=== PATIENT | male | born 1960 | race Caucasian/White ===

== ENCOUNTER 2025-06-17 10:51 | Outpatient (REF) | payer MEDICAID, SELFPAY ==
[2025-06-17 18:04] LABS: MANUAL DIFF FLAG NO
[2025-06-17 18:14] LABS: Hematocrit 45.7 % (42.0-52.0); Hemoglobin 14.8 g/dl (14.0-18.0); Imm Gran Abs Auto 0.03 X10*3/uL (0.00-0.03); Imm Gran Pct Auto 0.4 % (0.0-0.4); Lymphocytes Absolute Auto 2.6 X10*3/uL (1.2-4.9); Mean Corpuscular HGB Conc 32.4 g/dl (31.0-36.0); Mean Corpuscular Hemoglobin 27.0 pg (27.0-33.0); Mean Corpuscular Volume 83.2 fL (80.0-98.0); NRBC Abs Auto 0.000 X10*3/uL (0.0-0.012); NRBC Pct Auto 0.0 /100WBC (0.0-0.2); Platelet Count 128 X10*3/uL (160-400); Red Blood Count 5.49 X10*6/uL (4.60-5.80); White Blood Count 7.6 X10*3/uL (4.8-10.8)
[2025-06-17 18:18] LABS: Total Hemoglobin (HGBA1C) 3684.3639 umol/L
[2025-06-17 18:35] LABS: Appearance Urine Turbid; Glucose Urine UA Negative (Negative); PH 5.0 (5.0-9.0); Specific Gravity - Urine 1.025 (1.005-1.025); UMIC TRIGGER UACC YES
[2025-06-17 18:37] LABS: Alanine Aminotransferase 31 U/L (0-40); Albumin Level 4.6 g/dL (3.5-5.0); Alkaline Phosphatase 153 U/L (39-117); Anion Gap 12 (12-20); Aspartate Amino Transferase 27 U/L (5-37); Blood Urea Nitrogen 20 mg/dL (9-16); Calcium 9.1 mg/dL (8.4-10.2); Carbon Dioxide 27 mmol/L (22-29); Chloride 108 mmol/L (96-108); Cholesterol 179 mg/dL (<200); Estimated Glomerular Filt Rate > 60; HDL Cholesterol 48 mg/dL (>40); Magnesium 2.3 mg/dL (1.6-2.6); Potassium 4.3 mmol/L (3.3-5.1); Sodium 143 mmol/L (135-145); Total Protein 7.4 g/dL (6.5-8.0); Triglycerides 120 mg/dL (<150)
[2025-06-17 18:53] LABS: UACC Culture Trigger YES
[2025-06-17 18:59] LABS: Folate 9.8 ng/mL (> or = 4.0); Vitamin B12 530 pg/mL (200-900)
[2025-06-18 05:42] LABS: HBS Num1 > 1000.00 mIU/mL (0-7.99); HBsAGNum1 0.27 S/CO (0.00-0.99); HIV Num 1 0.05 S/CO (0.00-0.99); Hepatitis B Surface Antigen Negative (Negative); ~HepC Num1 0.09 S/CO (0.00-0.79); ~Hepatitis B Surface Antibody REACTIVE (Nonreactive); ~Hepatitis C Antibody Nonreactive (Nonreactive)
[2025-06-21 14:24] LABS: VITAMIN D (1,25 OH) D3 41 pg/mL; Vit D (1,25-Dihydroxy) Total 41 pg/mL (18-72); Vitamin D (1,25 OH) D2 <8 pg/mL
== END 2025-06-17 10:52 | disposition home or self-care (01) ==
LOC: HO.HKASLDS 10:51
PROVIDERS: PCP Student in an Organized Health Care Education/Training Program; Visit Provider Student in an Organized Health Care Education/Training Program
DX: Z76.89 Persons encountering health services in other specified circumstances (principal); Z13.9 Encounter for screening, unspecified; Z71.9 Counseling, unspecified; Z12.11 Encounter for screening for malignant neoplasm of colon; Z12.12 Encounter for screening for malignant neoplasm of rectum; Z13.31 Encounter for screening for depression; Z11.4 Encounter for screening for human immunodeficiency virus [HIV]; E11.9 Type 2 diabetes mellitus without complications; E78.2 Mixed hyperlipidemia; M25.561 Pain in right knee; M25.562 Pain in left knee; G89.29 Other chronic pain; R01.1 Cardiac murmur, unspecified
CPT/HCPCS: 36415; 80053; 80061; 81001; 82607; 82652; 82746; 83036; 83735; 85025; 86706; 86803; 87086; 87340; 87389; 99202

== ENCOUNTER 2025-06-17 10:51 | Outpatient (AMB) | payer MEDICAID, SELFPAY ==
--- NOTE | 2025-06-17 10:56 | A.OFFPC_ITS ---
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 Accompanied by: Self / Same As Patient Allergies No Known Allergies Allergy (Verified 06/17/25 10:57) Tobacco use date assessed: 06/17/25 Fall risk assessment: No Falls in past year Last assessed Fall Risk: 06/17/25 Dental Screening Dental Screen Date: 06/17/25 Did you have a dental visit in the last 12 months?: Yes Did you have a dental problem in the last 6 months where you did not have access to dental care?: No Was dental information given to patient?: Patient has dentist HPI HPI Comments History of Present Illness Details History of Present Illness The patient is a 64-year-old male presenting with the need to establish care with a primary care physician and address ongoing health concerns including diabetes, hyperlipidemia, and knee pain. Diabetes mellitus: - The patient has a history of diabetes mellitus and is currently taking metformin for management. Hyperlipidemia: - The patient has hyperlipidemia and is taking atorvastatin as part of his treat ment regimen. Bilateral knee pain: - The patient reports bilateral knee qi n, particularly when ascending stairs, which is suspected to be due to age-related arthritic changes. Heart murmur: - A heart murmur was detected during the physical examination, prompting further investigation with an electrocardiogram and echocardiogram. History of wrist fracture: - The patient sustained a wrist fracture approximately six to seven months ago, which required surgical intervention with titanium placement. Review of Systems - Musculoskeletal: Reports bilateral kne e pain when ascending stairs. - Cardiovascular: Denies chest pain, ort hopnea, or syncope. - Gastrointestinal: Denies changes in william wel habits. 10-point ROS reviewed and negative excep t as noted in HPI Past Medical History - Diabetes mellitus, managed with metfor min - Hyperlipidemia, managed with atorvasta tin - History of wrist fracture with surgica l intervention Health Maintenance - Colon cancer screening discussed with options for stool test or colonoscopy. Physical Exam General: Well-appearing, in no acute distress. Vital signs: Blood pressure is 139/81. HEENT: Normocephalic, atraumatic. PERRLA, EOMI. Conjunctiva clear, sclera anicteric. Oropharynx clear, mucous membranes moist. TMs intact bilaterally. Neck: Supple, no lymphadenopathy, no thyromegaly, no JVD or carotid bruits. Cardiovascular: Heart murmur noted. RRR, normal S1/S2, no rubs, or gallops. Peripheral pulses 2+ and symmetric. No edema. Respiratory: Lungs clear to auscultation bilaterally, no wheezes, rales, or rhonchi. Normal effort. Abdomen: Soft, non-tender, non-distended. Normoactive bowel sounds. No hepatosplenomegaly, no masses. MSK: Full range of motion, no joint swelling or deformity. Bilateral knee pain noted, especially when going up the stairs. Normal gait. Skin: Warm, dry, intact. No rashes, lesions, or pallor. Neuro: Alert and oriented x3. Cranial nerves II-XII intact. Strength 5/5 throughout. Sensation intact. Reflexes 2+ symmetric. Normal coordination and gait. Psych: Appropriate mood and affect. Normal judgment and insight. Plan 1. Type 2 diabetes mellitus without comp lications E11.9 HCC 19 - Continue metformin and monitor blood g lucose levels regularly. 2. Hyperlipidemia, unspecified E78 .5 - Continue atorvastatin and monitor lipi d profile. 3. Pain in right knee M25.561 - Recommend physical therapy for strengt hening and pain management. 4. Cardiac murmur, unspecified R01 .1 - Order electrocardiogram and echocardio gram to assess heart function. - Refer to cardiology for further evalua tion. 5. Preventative Care: Colon Cancer Scree tanmay - Discussed options for colon cancer scr eening including stool test and colonoscopy. Discussion Notes During the visit, I discussed the patient's diabetes management with metformin and the importance of regular blood glucose monitoring. We also reviewed his hyperlipidemia treatment with atorvastatin and the need for periodic lipid profile checks. For his bilateral knee pain, I recommended physical therapy to improve muscle strength and reduce pain. I explained the detection of a heart murmur and the necessity for further evaluation with an electrocardiogram and echocardiogram, along with a referral to cardiology. Additionally, we discussed colon cancer screening options, including a stool test and colonoscopy, to ensure comprehensive preventative care. Patient was informed and verbally consented to the use of an ambient scribe for clinic note documentation during this visit. Patient Instructions - Continue taking metformin and atorvast atin as prescribed. - Attend physical therapy sessions for k nee pain management. - Follow up with cardiology for heart mu rmur evaluation. - Complete colon cancer screening as dis cussed. [facility] Medical History (Updated 06/17/25 @ 11:47 by Abdulaziz Alicia MD) Systolic murmur Arthritis Bilateral knee pain Family History (Updated 06/17/25 @ 11:07 by Edgar Heck MA) Father High blood pressure Dementia Mother Mitral valve disease Heart problem Social History Housing: House Alcohol intake: current Alcohol intake frequency: does not drink Patient Tobacco Use Status: Never used Tobacco service: No Current occupational status: unemployed Cognitive needs: No Hearing needs: No Vision needs: Yes (rx glasses) Questionnaire PHQ-9 Over the last 2 weeks, how often have you been bothered by any of the following problems? 1. Little interest or pleasure in doing things: not at all 2. Feeling down, depressed, or hopeless: not at all 3. Trouble falling or staying asleep, or sleeping too much: not at all 4. Feeling tired or having little energy: not at all 5. Poor appetite or overeating: not at all 6. Feeling bad about yourself - or that you are a failure or have let yourself or your family down: not at all 7. Trouble concentrating on things, such as reading the newspaper or watching television: not at all 8. Moving or speaking so slowly that other people could have noticed. Or the opposite - being so fidgety or restless that you have been moving around a lot more than usual: not at all 9. Thoughts that you would be better off or of hurting yourself in some way: not at all Total score: 0 Source: Developed by Drs. Dakotah Novak, Zoie Pearl, Live Rojas and colleagues, with an educational ziyad from [employer]. Thrive Questionnaire Date Thrive assessed: 06/16/25 I am a: Patient What is your living situation today?: I have a steady place to live Within the past 12 months, did the food you bought not last and you didn't have the money to get more?: Never true Within the past 12 months, did you worry whether your food would run out before you got money to buy more?: Never true Do you have trouble paying for medicines?: No Do you have trouble getting transportation to medical appointments?: No Do you have trouble paying your heating and electricity bill?: No Do you have trouble taking care of your child, family member or friend?: No Do you have trouble with day-to-day activities such as bathing, preparing meals, shopping, managing finances, etc.?: No Are you currently unemployed and looking for a job?: Yes Are you interested in more education?: No Please select the resources that you would like help with: Transportation and Daily support Currently or been in a relationship where the following occur: No concerns reported THRIVE Score: 0 AUDIT C Alcohol Use Questionnaire (AUDIT-C) 1. How often do you have a drink containing alcohol?: Never 3. How often do you have six or more drinks on one occasion?: Never Total Score: 0 MARY-7 AMB Questionnaire MARY-7 Feeling nervous, anxious, or on edge: 0 = Not at all Not being able to stop or control worryin = Not at all Worrying too much about different things: 0 = Not at all Trouble relaxin = Not at all Being so restless that it is hard to sit still: 0 = Not at all Becoming easily annoyed or irritable: 0 = Not at all Feeling afraid as if something awful might happen: 0 = Not at all Total MARY-7 score (0-4 normal; 5-9 mild; 10-14 moderate; 15-21 severe): 0 Source: Developed by Drs. Dakotah Novak, Zoie Pearl, Live Rojas and colleagues, with an educational ziyad from [employer]. Physical exam (Primary Care) Thrive Assessment: Date of Thrive Assessment Date Thrive assessed 06/16/25 06/16/25 16:42 Currently or been in a relationship where the following occur: No concerns reported Coding Level of Care Code New Pt Level 3 (74068) Diagnoses Encounter to establish care Z76.89 Encounter for screening, unspecified Z13.9 Counseling, unspecified Z71.9 Type 2 diabetes mellitus without complication, without long-term current use of insulin E11.9 Diabetes mellitus rn long term care insulin use: without rn long term care use Diabetes mellitus complication status: without complication Mixed hyperlipidemia E78.2 Hyperlipidemia type: mixed hyperlipidemia Chronic pain of both knees M25.561; M25.562; G89.29 Chronicity: chronic Systolic murmur R01.1 Cardiac murmur R01.1 Encounter for colorectal cancer screening Z12.11; Z12.12 Screening for depression Z13.31 Screening for HIV (human immunodeficiency virus) Z11.4 Assessment & Plan Assessment & Plan (1) Encounter to establish care: Code(s): Z76.89 - Persons encountering health services in other specified circumstances (2) Encounter for screening, unspecified: Code(s): Z13.9 - Encounter for screening, unspecified (3) Counseling, unspecified: Code(s): Z71.9 - Counseling, unspecified (4) Diabetes type 2: Code(s): E11.9 - Type 2 diabetes mellitus without complications Qualifiers: Diabetes mellitus fdc insulin use: without rn long term care use Diabetes mellitus complication status: without complication Qualified Code(s): E11.9 - Type 2 diabetes mellitus without complications (5) Hyperlipidemia: Code(s): E78.5 - Hyperlipidemia, unspecified Qualifiers: Hyperlipidemia type: mixed hyperlipidemia Qualified Code(s): E78.2 - Mixed hyperlipidemia (6) Bilateral knee pain: Code(s): M25.561 - Pain in right knee; M25.562 - Pain in left knee Category: Medical Qualifiers: Chronicity: chronic Qualified Code(s): M25.561 - Pain in right knee; M25.562 - Pain in left knee; G89.29 - Other chronic pain (7) Systolic murmur: Code(s): R01.1 - Cardiac murmur, unspecified Category: Medical (8) Cardiac murmur: Code(s): R01.1 - Cardiac murmur, unspecified (9) Encounter for colorectal cancer screening: Code(s): Z12.11 - Encounter for screening for malignant neoplasm of colon; Z12.12 - Encounter for screening for malignant neoplasm of rectum (10) Screening for depression: Code(s): Z13.31 - Encounter for screening for depression (11) Screening for HIV (human immunodeficiency virus): Code(s): Z11.4 - Encounter for screening for human immunodeficiency virus [HIV] Plan Orders: Orders Comprehensive Met. Panel Today Z13.9 - Encounter for screening, unspecified, Z76.89 - Persons encountering health services in other specified circumstances Hepatitis B Surface Antibody Today Z13.9 - Encounter for screening, unspecified, Z76.89 - Persons encountering health services in other specified circumstances HIV Ab/Ag Today Z13.9 - Encounter for screening, unspecified, Z76.89 - Persons encountering health services in other specified circumstances UA CC w/rflx Micro + Cult Today Z13.9 - Encounter for screening, unspecified, Z76.89 - Persons encountering health services in other specified circumstances Complete Blood Count Auto Diff Today Z13.9 - Encounter for screening, unspecified, Z76.89 - Persons encountering health services in other specified circumstances Hemoglobin A1c Today Z13.9 - Encounter for screening, unspecified, Z76.89 - Persons encountering health services in other specified circumstances Hepatitis B Surface Antigen Today Z13.9 - Encounter for screening, unspecified, Z76.89 - Persons encountering health services in other specified circumstances Hepatitis C Antibody Today Z13.9 - Encounter for screening, unspecified, Z76.89 - Persons encountering health services in other specified circumstances Lipid Panel Today Z13.9 - Encounter for screening, unspecified, Z76.89 - Persons encountering health services in other specified circumstances Magnesium Today Z13.9 - Encounter for screening, unspecified, Z76.89 - Persons encountering health services in other specified circumstances Vitamin B12 and Folate Today Z13.9 - Encounter for screening, unspecified, Z76.89 - Persons encountering health services in other specified circumstances Vitamin D 1,25 dihydroxy Today Z13.9 - Encounter for screening, unspecified, Z76.89 - Persons encountering health services in other specified circumstances PT Evaluation and Treatment Today M19.90 - Unspecified osteoarthritis, unspecified site, M25.561 - Pain in right knee, M25.562 - Pain in left knee CA Echo Limited Today R01.1 - Cardiac murmur, unspecified ECG 12 lead EKG Today R01.1 - Cardiac murmur, unspecified Referrals Cardiology Referral R01.1 - Cardiac murmur, unspecified Cologuard Test Z12.11 - Encounter for screening for malignant neoplasm of colon, Z12.12 - Encounter for screening for malignant neoplasm of rectum
[2025-06-17 11:00] VITALS: BP 139/81; PULSE 77; RESP 16; TEMP 36.6; O2SAT 96; BMI 27.8
== END 2025-06-17 11:40 | disposition home or self-care (01) ==
PROVIDERS: PCP Student in an Organized Health Care Education/Training Program; Visit Provider Student in an Organized Health Care Education/Training Program
DX: E11.9 Type 2 diabetes mellitus without complications (principal); R01.1 Cardiac murmur, unspecified; E78.2 Mixed hyperlipidemia; M25.561 Pain in right knee; M25.562 Pain in left knee; G89.29 Other chronic pain

== ENCOUNTER 2025-07-04 16:02 | Outpatient (AMB) | payer MEDICAID, SELFPAY ==
[2025-07-04 16:14] VITALS: BP 156/74; PULSE 77; RESP 16; TEMP 36.5; O2SAT 99; BMI 28.0
--- NOTE | 2025-07-04 16:14 | A.OFFPC_ITS ---
Vital Signs 07/04/25 16:14 Height 5 ft 10.67 in Weight 199 lb BMI 28.0 BP 156/74 H Blood Pressure Location Rt brachial Position Sitting Respiration 16 Pulse 77 Pulse Source Pulse Oximeter Temp 97.7 F Temp Source Oral Pulse Oximetry (%) 99 Oxygen Delivery Method Room Air Intake Visit Reasons: 2 wk f/u Sample Color Maker Required: No Accompanied by: Self / Same As Patient Allergies No Known Allergies Allergy (Verified 07/04/25 16:14) Tobacco use date assessed: 07/04/25 Fall risk assessment: No Falls in past year Last assessed Fall Risk: 06/17/25 Dental Screening Dental Screen Date: 07/04/25 Did you have a dental visit in the last 12 months?: Yes Did you have a dental problem in the last 6 months where you did not have access to dental care?: No Was dental information given to patient?: Patient has dentist HPI HPI Comments History of Present Illness Details Consent Patient was informed and verbally consented to the use of an ambient scribe for clinic note documentation during this visit. History of Present Illness The patient is a 64-year-old male presenting with a follow-up visit for chronic conditions management and health maintenance. Diabetes Mellitus: The patient has a longstanding history of Diabetes Mellitus managed with metformin. His most recent laboratory results indicate a random glucose level of 118 mg/dL and a hemoglobin A1c of 6.2%. Although these values reflect prediabetes levels, the patient's condition is currently under control with metformin therapy. Hyperlipidemia: The patient has been diagnosed with hyperlipidemia and is on atorvastatin therapy. Nevertheless, the patient's LDL cholesterol level is 107 mg/dL, which remains higher than the target level for a type 2 diabetic, prompting the need to re-evaluate his current treatment strategy. Bilateral Knee Pain: The patient experiences bilateral knee pain, with exacerbation notably on ascending stairs. The symptoms are suspected to be related to arthritis. Heart Murmur: A heart murmur was identified and further evaluation with diagnostic tests, including an electrocardiogram and an echocardiogram, has been initiated. Thrombocytopenia: The patient presents with thrombocytopenia, with a platelet count pegged at 128, which is below the normal range. However, he has displayed no signs of bleeding abnormalities such as bruising. Elevated Alkaline Phosphatase: The patient's alkaline phosphatase levels are recorded at 153, exceeding the upper limit of the normal range. Surgical History: - None Medications: - Metformin for diabetes mellitus - Atorvastatin for hyperlipidemia Social History: - None discussed Family History: - None discussed Diagnostic Results: Labs: - Platelet count of 128, indicating thrombocytopenia - Random glucose level of 118 mg/dL and hemoglobin A1c of 6.2%, indicating prediabetes - Elevated alkaline phosphatase level of 153 - LDL cholesterol level of 107 mg/dL Review of Systems - Musculoskeletal: Reports bilateral kne e pain, especially when ascending stairs 10-point ROS reviewed and negative excep t as noted in HPI Past Medical History - Diabetes Mellitus - Hyperlipidemia - History of wrist fracture Health Maintenance - Colon cancer screening with a stool te st (Cologuard) has been ordered Physical Exam General: Well-appearing, in no acute distress. Vital signs: Within normal limits. HEENT: Normocephalic, atraumatic. PERRLA, EOMI. Conjunctiva clear, sclera anicteric. Oropharynx clear, mucous membranes moist. TMs intact bilaterally. Neck: Supple, no lymphadenopathy, no thyromegaly, no JVD or carotid bruits. Cardiovascular: RRR, normal S1/S2, heart murmur noted. No rubs or gallops. Peripheral pulses 2+ and symmetric. No edema. Respiratory: Lungs clear to auscultation bilaterally, no wheezes, rales, or rhonchi. Normal effort. Abdomen: Soft, non-tender, non-distended. Normoactive bowel sounds. No hepatosplenomegaly, no masses. MSK: Full range of motion, no joint swelling or deformity. Reports bilateral knee pain, particularly when ascending stairs, suspected due to arthritis. Normal gait. Referral for physical therapy for right knee pain has been p rovided. Skin: Warm, dry, intact. No rashes, lesions, or pallor. Neuro: Alert and oriented x3. Cranial nerves II-XII intact. Strength 5/5 throughout. Sensation intact. Reflexes 2+ symmetric. Normal coordination and gait. Psych: Appropriate mood and affect. Normal judgment and insight. Plan 1. Diabetes Mellitus - Continue metformin therapy. - Regular monitoring of glucose levels a nd hemoglobin A1c. -repeat A1c in 3 months 2. Hyperlipidemia - Increase atorvastatin dosage to 20 mg daily to achieve LDL target below 70 mg/dL. - Reassess LDL levels after the dosage a djustment. 3. Bilateral Knee Pain - Further evaluation for arthritis if sy mptoms persist. - Referral to physical therapy provided for the symptomatic knee. 4. Heart Murmur - Ordered electrocardiogram and echocard iogram for further evaluation and follow-up based on results. 5. Thrombocytopenia - Monitor platelet count and assess for any signs of bleeding. - Consider hematology referral if persis tent low count on follow-up. 6. Elevated Alkaline Phosphatase - Repeat urine test and monitor alkaline phosphatase levels. Discussion Notes I discussed with the patient the diagnosis and management options for his current health conditions, including the increase in atorvastatin dosage to achieve tighter cholesterol control. I explained the need for further ca rdiovascular assessment due to the heart murmur and the implications of thrombocytopenia, alleviating concerns about potential bleeding given the absence of any symptoms. We went over the necessity and procedures of future echocardiogram and colon cancer screening. The patient was informed about the potential benefits and risks of the proposed changes and tests, including the importance of medication compliance and routine follow-up visits. The patient consented to the management plan and follow-up testing and had an opportunity to ask questions which were addressed comprehensively. Patient Instructions - Continue taking metformin and atorvast atin as prescribed. - Increase atorvastatin dosage to 20 mg. - Monitor blood sugar level regularly as advised. - Follow up with recommended echocardiog roni and electrocardiogram evaluations. - Watch for any unusual bruising or blee ding. - Attend physical therapy for knee pain management. - Return for evaluation in 3 to 6 months or sooner if new symptoms develop. Medical Decision Making In assessing the patient's condition, I focused on the controlled status of his diabetes with current metformin therapy, noting lab results supportive of his management plan. Hyperlipidemia was addressed with an increase in atorvastatin dosage after considering LDL cholesterol levels, and I reiterated the importance of reaching recommended lipid targets for diabetics. Thrombocytopenia requires monitoring, though the absence of symptoms like bruising mitigates immediate concern. The existence of a heart murmur prompted referral for cardiovascular imaging. Elevated alkaline phosphatase levels also warrant periodic monitoring to preclude potential hepatic pathology. I delivered an anticipatory guidance focused on preventive care and planned follow-up testing as agreed upon by the patient. Total time spent caring for the patient today was 30 minutes. This includes time spent before the visit reviewing the chart, time spent documenting, and time spent reviewing laboratory results, diagnostic imaging, medications, performing a medically necessary evaluation, counseling on diagnoses, care coordination, ordering appropriate tests, ordering appropriate medications. [facility] Medical History (Updated 06/17/25 @ 11:47 by Abdulaziz Alicia MD) Systolic murmur Arthritis Bilateral knee pain Family History Father High blood pressure Dementia Mother Mitral valve disease Heart problem Social History Housing: House Alcohol intake: current Alcohol intake frequency: does not drink Patient Tobacco Use Status: Never used Tobacco service: No Current occupational status: unemployed Cognitive needs: No Hearing needs: No Vision needs: Yes (rx glasses) Questionnaire Thrive Questionnaire Date Thrive assessed: 07/04/25 I am a: Patient What is your living situation today?: I have a steady place to live Within the past 12 months, did the food you bought not last and you didn't have the money to get more?: Never true Within the past 12 months, did you worry whether your food would run out before you got money to buy more?: Never true Do you have trouble paying for medicines?: No Do you have trouble getting transportation to medical appointments?: No Do you have trouble paying your heating and electricity bill?: No Do you have trouble taking care of your child, family member or friend?: No Do you have trouble with day-to-day activities such as bathing, preparing meals, shopping, managing finances, etc.?: No Are you currently unemployed and looking for a job?: Yes Are you interested in more education?: No Please select the resources that you would like help with: Transportation and Daily support Currently or been in a relationship where the following occur: No concerns reported THRIVE Score: 0 AUDIT C Alcohol Use Questionnaire (AUDIT-C) 1. How often do you have a drink containing alcohol?: Never 3. How often do you have six or more drinks on one occasion?: Never Total Score: 0 MARY-7 AMB Questionnaire MARY-7 Date MARY - 7 assessed: 07/04/25 Source: Developed by Drs. Dakotah Novka, Zoie Pearl, Live Rojas and colleagues, with an educational ziyad from [employer]. Physical exam (Primary Care) Vital Signs: Last Vital Signs Temp 97.7 F 07/04/25 16:14 Pulse 77 07/04/25 16:14 Resp 16 07/04/25 16:14 BP 156/74 H 07/04/25 16:14 Pulse Ox 99 07/04/25 16:14 Oxygen Delivery Method Room Air 07/04/25 16:14 BMI result Body Mass Index 28.0 Tobacco/Smoking Status: Tobacco use Status Tobacco use date assessed 07/04/25 07/04/25 16:24 Patient Tobacco Use Status Never used Tobacco 07/04/25 16:24 Thrive Assessment: Date of Thrive Assessment Date Thrive assessed 07/04/25 07/04/25 16:24 Currently or been in a relationship where the following occur: No concerns reported Coding Level of Care Code Est Pt Level 4 (09299) Diagnoses Chronic pain of both knees M25.561; M25.562; G89.29 Chronicity: chronic Systolic murmur R01.1 Type 2 diabetes mellitus E11.9 Hyperlipidemia E78.5 Thrombocytopenia D69.6 Elevated alkaline phosphatase level R74.8 Assessment & Plan Assessment & Plan (1) Bilateral knee pain: Code(s): M25.561 - Pain in right knee; M25.562 - Pain in left knee Category: Medical Qualifiers: Chronicity: chronic Qualified Code(s): M25.561 - Pain in right knee; M25.562 - Pain in left knee; G89.29 - Other chronic pain (2) Systolic murmur: Code(s): R01.1 - Cardiac murmur, unspecified Category: Medical (3) Type 2 diabetes mellitus: Code(s): E11.9 - Type 2 diabetes mellitus without complications (4) Hyperlipidemia: Code(s): E78.5 - Hyperlipidemia, unspecified (5) Thrombocytopenia: Code(s): D69.6 - Thrombocytopenia, unspecified (6) Elevated alkaline phosphatase level: Code(s): R74.8 - Abnormal levels of other serum enzymes Plan
== END 2025-07-04 16:40 | disposition home or self-care (01) ==
LOC: HO.HMCFMS 16:03
PROVIDERS: PCP Student in an Organized Health Care Education/Training Program; Visit Provider Student in an Organized Health Care Education/Training Program
DX: M25.561 Pain in right knee (principal); M25.562 Pain in left knee; G89.29 Other chronic pain; R01.1 Cardiac murmur, unspecified; E11.9 Type 2 diabetes mellitus without complications; E78.5 Hyperlipidemia, unspecified; D69.6 Thrombocytopenia, unspecified; R74.8 Abnormal levels of other serum enzymes

== ENCOUNTER → 2025-07-04 16:02 | Outpatient (BNVA) | payer MEDICAID, SELFPAY | PROVIDERS: PCP Student in an Organized Health Care Education/Training Program; Visit Provider Student in an Organized Health Care Education/Training Program | DX: M25.561 Pain in right knee (principal); M25.562 Pain in left knee; G89.29 Other chronic pain; R01.1 Cardiac murmur, unspecified; E11.9 Type 2 diabetes mellitus without complications; E78.5 Hyperlipidemia, unspecified; D69.6 Thrombocytopenia, unspecified; R74.8 Abnormal levels of other serum enzymes; Z79.84 Long term (current) use of oral hypoglycemic drugs; Z79.899 Other long term (current) drug therapy | CPT/HCPCS: 99212 ==

== ENCOUNTER 2025-07-08 15:09 | Outpatient (AMB) | payer MEDICAID, SELFPAY ==
[2025-07-08 15:13] VITALS: BP 151/73; PULSE 88; RESP 16; TEMP 36.6; O2SAT 96; BMI 28.0
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
== END 2025-07-08 15:33 | disposition home or self-care (01) ==
LOC: HO.HMCFMS 15:10
PROVIDERS: PCP Student in an Organized Health Care Education/Training Program; Visit Provider Student in an Organized Health Care Education/Training Program
DX: M25.561 Pain in right knee (principal); M25.562 Pain in left knee; G89.29 Other chronic pain; M79.672 Pain in left foot; M19.90 Unspecified osteoarthritis, unspecified site

== ENCOUNTER → 2025-07-08 15:09 | Outpatient (BNVA) | payer MEDICAID, SELFPAY | PROVIDERS: PCP Student in an Organized Health Care Education/Training Program; Visit Provider Student in an Organized Health Care Education/Training Program | DX: M25.561 Pain in right knee (principal); M25.562 Pain in left knee; G89.29 Other chronic pain; M79.672 Pain in left foot; M19.90 Unspecified osteoarthritis, unspecified site | CPT/HCPCS: 99212 ==

== ENCOUNTER → 2025-07-16 12:59 | Outpatient (REF) | payer MEDICAID, SELFPAY ==
--- NOTE | 2025-07-16 13:05 | ECG_ITS ---
Test Reason : R01.1 Blood Pressure : */* mmHG Vent. Rate : 78 BPM Atrial Rate : 78 BPM P-R Int : 192 ms QRS Dur : 102 ms QT Int : 370 ms P-R-T Axes : 42 -47 25 degrees QTcB Int : 421 ms Normal sinus rhythm Left anterior fascicular block Minimal voltage criteria for LVH, may be normal variant ( R in aVL ) Abnormal ECG No previous ECGs available Referred By: Abdulaziz Alicia Electronically Signed By: DILIP MIRANDA
--- NOTE | 2025-07-16 13:13 | CA_ITS ---
Transthoracic Echocardiogram Patient (Last, First, Middle): Ania Mendes, Gender: Male Date of : 1960 Age: 65 Procedure Date: 07/16/2025 Procedure Type: Transthoracic Echocardiogram Location: OP Height: 177.8 cm Weight: 90.27 kg BSA: 2.08 m2 Heart Rate: bpm BP: 151 / 73 mmHg Seaming Inspector: CP/VANDANA Referring MD: Abdulaziz Alicia MD Symptoms: R01.1 - Cardiac murmur, unspecified Study Quality: Fair ECG Rhythm: Sinus Conclusions: - The left ventricular systolic function is normal. The calculated ejection fraction is 67% by biplane method. - Possibly flail posterior leaflet with at least moderate mitral regurgitation. - Recommend a KAMILA. Findings Left Ventricle Normal left ventricular cavity size. There is normal left ventricular wall thickness. The left ventricular systolic function is normal. The calculated ejection fraction is 67% by biplane method. There is no evidence of regional wall motion abnormalities. Diastolic function is normal for age. Right Ventricle Mildly increased right ventricular cavity size. There is normal right ventricular systolic function. Atria The left atrium is moderately dilated. The right atrium is normal in size. Aortic Valve There is a normal trileaflet aortic valve. There is mild calcification of the aortic valve. There is no aortic valve stenosis. There is no aortic valve regurgitation. Mitral Valve There is no mitral valve stenosis. Possibly flail posterior leaflet. At least moderate mitral regurgitation, eccentric jet, anterior directed. Pulmonic Valve The pulmonic valve is likely normal. Tricuspid Valve There is mild tricuspid valve regurgitation. There is no evidence of pulmonary hypertension. Great Vessels The asc aorta is normal in size. Venous The inferior vena cava is normal in size and collapses greater than 50% with inspiration. Pericardium/Pleural There is no evidence of pericardial effusion. Prior Study Comparison No prior study available for comparison. Recommendations, Care & Conclusions Recommend a KAMILA. Measurements 2D Linear Measurements IVSd: 0.95 0.6-0.9/0.6-1.0 cm LVIDd: 4.70 3.9-5.3/4.2-5.9 cm LVIDd Index: 2.26 2.4-3.2/2.2-3.1 cm/m2 LVIDs: 3.16 2.0-3.6 cm LVPWd: 0.94 0.7-1.1 cm LA Diam: 4.10 2.7-3.8/3.0-4.0 cm LAIDs Index: 1.97 1.5-2.3 cm/m2 LV Mass: 189.66 67-162/88-224 g LV Mass Index: 91.18 43-95/49-115 g/m2 LVOT Diam: 2.00 3.0+(-)1.3 cm 2D Systolic Function EF 4C: 68.40 >55% EF 2C: 65.30 >55% EF BiP: 67.00 >55% Mitral Valve MV VTI: 0.39 MV Pk Serg: 1.34 MV Mn Serg: 0.91 MV Pk Grad: 7.00 MV Mn Grad: 4.00 MV Pk E: 1.41 MV PK A: 1.02 MV Decel Time: 181.00 E/A: 1.40 E'Lateral: 10.40 E'Medial: 8.92 E/E' Med: 15.80 E/E' Lat: 13.60 PHT: 53.00 MVA PHT: 4.15 MVA Continuity: 2.41 Decel Mccurtain: 7.79 MR Vol - PW Dopp: 18.50 MR VTI: 1.85 MR ERO: 10.00 MR Alias Serg: 0.37 MR RAD: 0.50 Aortic Valve AoV Pk Serg: 1.71 AoV Mn Serg: 1.23 AoV VTI: 0.40 AoV Pk Grad: 12.00 Aov Mn Grad: 7.00 LUIS A Cont.VTI: 2.34 AI Pk Serg: 4.31 AI Mccurtain: 2.82 LVOT LVOT Pk Serg: 1.48 LVOT Mn Serg: 0.93 LVOT VTI: 0.30 LVOT Pk Grad: 9.00 LVOT Mn Grad: 4.00 LVOT Diam: 2.00 LVOT Area: 3.14 Diastolic Function MV Pk E: 1.41 MV Pk A: 1.02 E/A: 1.40 E'Medial: 8.92 E/E' Med: 15.80 E' Laterial: 10.40 E/E' Lat: 13.60 Right Ventricle TAPSE (mm): 30.60 TVS' Serg: 14.50 Tricuspid Valve TR Pk Serg: 2.40 TR Pk Grad: 23.00 RA Press: 3.00 RVSP: 26.00 Great Vessels Aorta Sinus of Valsalva: 3.70 2.0-3.5 cm Ao Asc: 3.70 2.1-3.4 cm Pulmonary Veins Pulm Vein S/D 0.80 Pulmonary Valve PV Pk Serg: 1.41 Peak PV Grad: 8.00 Updated in Other Vendor System with Status of Final Shaggy Still MD electronically signed on 07/17/2025 12:35:12 PM with status of Final
== END ==
LOC: HO.CARD 12:59
PROVIDERS: PCP Student in an Organized Health Care Education/Training Program; Visit Provider Student in an Organized Health Care Education/Training Program
DX: R01.1 Cardiac murmur, unspecified (principal)
CPT/HCPCS: 93005; 93306

== ENCOUNTER → 2025-07-16 13:05 | Outpatient (BNV) | payer MEDICAID, SELFPAY | PROVIDERS: PCP Student in an Organized Health Care Education/Training Program; Visit Provider Internal Medicine | DX: I44.4 Left anterior fascicular block (principal) | CPT/HCPCS: 93010 ==

== ENCOUNTER 2025-07-30 15:12 | Outpatient (AMB) | payer MEDICAID, SELFPAY ==
[2025-07-30 15:14] VITALS: BP 138/78; PULSE 86; BMI 27.5
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
== END 2025-07-30 15:48 | disposition home or self-care (01) ==
LOC: HO.HCS 15:13
PROVIDERS: PCP Student in an Organized Health Care Education/Training Program; Visit Provider Internal Medicine
DX: I34.0 Nonrheumatic mitral (valve) insufficiency (principal); I10 Essential (primary) hypertension
CPT/HCPCS: 99214

== ENCOUNTER → 2025-07-30 15:12 | Outpatient (BNVA) | payer MEDICAID, SELFPAY | PROVIDERS: PCP Student in an Organized Health Care Education/Training Program; Visit Provider Internal Medicine | DX: I10 Essential (primary) hypertension (principal); I34.0 Nonrheumatic mitral (valve) insufficiency | CPT/HCPCS: 99212 ==

== ENCOUNTER 2025-08-08 11:06 | Day surgery (SDC) | payer MEDICAID, SELFPAY ==
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
[2025-08-08 11:18] VITALS: BMI 26.8
[2025-08-08 11:37] VITALS: BP 132/75; PULSE 81; RESP 16; TEMP 36.6; O2SAT 99
[2025-08-08] MEDS: Lactated Ringers 1,000 ML 100 ML IVCONT (11:49)
[2025-08-08 11:56] LABS: Glucose, Whole Blood 113 mg/dL (60-115)
--- NOTE | 2025-08-08 12:26 | CA_ITS ---
Transesophageal Echocardiogram Patient (Last, First, Middle): Ania Mendes, Gender: Male Date of : 1960 Age: 65 Procedure Date: 08/08/2025 Procedure Type: Transesophageal Echocardiogram Location: OP Height: 177.8 cm Weight: kg BSA: m2 Heart Rate: 65 bpm Home Office Claim Specialist: DARON Referring MD: Shaggy Still MD Symptoms: I34.0 - Nonrheumatic mitral (valve) insufficiency Conclusion: ??? The left ventricular systolic function is normal. The visually estimated ejection fraction is between 65-70%. ??? Early severe mitral regurgitation related to flail posterior mitral leaflet, P2 scallop. Findings Procedure Information Consent was obtained prior to the procedure. Pre KAMILA oral cavity was checked and revealed no overcrowding. The adult 3D probe was passed with no difficulty. Left Ventricle Normal left ventricular cavity size. The left ventricular systolic function is normal. The visually estimated ejection fraction is between 65-70%. There is no evidence of regional wall motion abnormalities. Right Ventricle Normal right ventricular cavity size and systolic function. Atria There is no evidence of a thrombus in the left atrial appendage. There is no evidence of interatrial shunt by color Doppler. Aortic Valve There is a normal trileaflet aortic valve. There is no aortic valve stenosis. There is trace (trivial) aortic valve regurgitation. Mitral Valve There is a flail posterior mitral leaflet. By 3D evaluation, suspect flail P2 scallop. Highly eccentric anteriorly directed jet, wall hugging. Visually suggestive of [id number] mitral regurgitation. However, by quantitative assessment, effective regurgitant orifice area falls in the severe range. Pulmonic Valve The pulmonic valve was not well visualized. Tricuspid Valve Normal tricuspid valve structure. There is mild tricuspid valve regurgitation. Great Vessels Mild plaque in visualized portions of descending thoracic aorta and arch. Venous The inferior vena cava was not well visualized. Pericardium/Pleural There is no evidence of pericardial effusion. Prior Study Comparison No significant change compared to prior study dated: 07/16/2025. Measurements Mitral Valve MR Vol - PW Dopp: 85.92 MR VTI: 1.79 MR ERO: 48.00 MR Alias Serg: 0.39 MR RAD: 1.00 Updated by Shaggy Still on 02:49 PM with Status of Final Shaggy Still MD electronically signed on 08/10/2025 2:49:04 PM with status of Final
--- NOTE | 2025-08-08 13:06 | MHC.SHP ---
Pre-Procedural Eval Section A - 24 Hr Update-Section A only Date of Service: 08/08/25 The patient is an INPATIENT: No Section B - Complete if H&P > 30 days Chief Complaint: Nonrheumatic mitral (valve) insufficiency Allergies: Allergies Allergy/AdvReac Type Severity Reaction Status Date / Time No Known Allergies Allergy Verified 07/04/25 16:14 Plan I have reviewed the history and physical and performed a pertinent physical examination on my patient. No changes have occurred unless specified. Time Spent With Patient Time: Total time managing care of this patient today ____ minutes.
--- NOTE | 2025-08-08 13:19 | PC.NURSE ---
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 asked family and patient if he wanted to keep it and they both stated no. no bleeding.
[2025-08-08 14:01] VITALS: BP 94/48; PULSE 63; RESP 16; TEMP 36.4; O2SAT 98
[2025-08-08 14:06] VITALS: BP 90/45; PULSE 59; RESP 17; O2SAT 99
[2025-08-08 14:11] VITALS: BP 102/45; PULSE 68; RESP 23; O2SAT 96
[2025-08-08 14:16] VITALS: BP 90/48; PULSE 72; RESP 16; O2SAT 97
[2025-08-08 14:31] VITALS: BP 112/62; PULSE 69; RESP 12; TEMP 36.1; O2SAT 98
== END 2025-08-08 14:48 | disposition home or self-care (01) ==
PROVIDERS: PCP Student in an Organized Health Care Education/Training Program; Visit Provider Internal Medicine
PROC: (CPT 93312; principal; 2025-08-08 12:30)
DX: I34.0 Nonrheumatic mitral (valve) insufficiency (principal); I10 Essential (primary) hypertension; R01.1 Cardiac murmur, unspecified; Z79.899 Other long term (current) drug therapy; Z79.84 Long term (current) use of oral hypoglycemic drugs; Z98.890 Other specified postprocedural states; Z56.0 Unemployment, unspecified
CPT/HCPCS: 93312; 82947; J2371; J2704

== ENCOUNTER → 2025-08-08 12:26 | Outpatient (BNV) | payer MEDICAID, SELFPAY | PROVIDERS: PCP Student in an Organized Health Care Education/Training Program; Visit Provider Internal Medicine | DX: I34.0 Nonrheumatic mitral (valve) insufficiency (principal) | CPT/HCPCS: 76376; 93312; 93320; 93325 ==

== ENCOUNTER 2025-08-21 15:36 | Outpatient (AMB) | payer MEDICAID, SELFPAY ==
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
[2025-08-21 15:48] VITALS: BP 140/70; PULSE 93; BMI 27.5
== END 2025-08-21 17:22 | disposition home or self-care (01) ==
LOC: HO.HCS 15:37
PROVIDERS: PCP Student in an Organized Health Care Education/Training Program; Visit Provider Nurse Practitioner Family
DX: I34.0 Nonrheumatic mitral (valve) insufficiency (principal); R01.1 Cardiac murmur, unspecified; I10 Essential (primary) hypertension
CPT/HCPCS: 99215

== ENCOUNTER → 2025-08-21 15:36 | Outpatient (BNVA) | payer MEDICAID, SELFPAY | PROVIDERS: PCP Student in an Organized Health Care Education/Training Program; Visit Provider Nurse Practitioner Family | DX: I34.0 Nonrheumatic mitral (valve) insufficiency (principal); R01.1 Cardiac murmur, unspecified; I10 Essential (primary) hypertension; Z79.899 Other long term (current) drug therapy | CPT/HCPCS: 99212 ==